=== PATIENT | female | born 1990 | race Caucasian/White ===

== ENCOUNTER 2018-12-08 03:10 | Inpatient (IN) | payer MEDICAID ==
[2018-12-08] MEDS ORDERED: ONDANSETRON INJ 8 MG in DEXTROSE 5% 50 ML IV (04:00)
[2018-12-08 04:44] LABS: ADD MAN DIFF? NO
[2018-12-08 04:49] LABS: BASOPHIL # 0.1 10^3/ul (0.0-0.1); BASOPHILS % 0.4 % (0.0-2.0); EOSINOPHILS # 0.2 10^3/ul (0.0-0.5); EOSINOPHILS % 1.6 % (0.0-7.0); HEMATOCRIT 35.7 % (37.0-47.0); HEMOGLOBIN 11.4 g/dl (12.0-16.0); LYMPHOCYTES # 2.6 10^3/ul (0.8-2.9); LYMPHOCYTES % 20.1 % (15.0-51.0); MEAN CORPUSCULAR HEMOGLOBIN 26.2 pg (29.0-33.0); MEAN CORPUSCULAR HGB CONC 31.9 g/dl (32.0-37.0); MEAN CORPUSCULAR VOLUME 82.1 fl (82.0-101.0); MEAN PLATELET VOLUME 11.8 fl (7.4-10.4); MONOCYTE # 0.9 10^3/ul (0.3-0.9); MONOCYTES % 7.3 % (0.0-11.0); NEUTROPHILS % 69.8 % (39.0-77.0); PLATELET COUNT 270 10^3/UL (140-415); RED BLOOD COUNT 4.35 10^6/ul (4.20-5.40); RED CELL DISTRIBUTION WIDTH 13.9 % (11.5-14.5)
[2018-12-08 04:49] LABS: WHITE BLOOD COUNT 12.9 10^3/ul (4.8-10.8)
[2018-12-08 05:00] LABS: ADD UMIC YES; UR ASCORBIC ACID NEGATIVE (NEGATIVE); UR BACTERIA FEW /HPF (NONE SEEN); UR BILIRUBIN (Dip) NEGATIVE (NEGATIVE); UR BLOOD (Dip) 1+ mg/dL (NEGATIVE); UR CALCIUM OXALATE CRYSTAL MODERATE /HPF (NONE SEEN); UR CLARITY CLOUDY (CLEAR); UR COLOR YELLOW (YELLOW); UR GLUCOSE (Dip) NEGATIVE (NEGATIVE); UR KETONES (Dip) NEGATIVE (NEGATIVE); UR LEUKOCYTE ESTERASE (Dip) 2+ Leu/ul (NEGATIVE); UR MUCUS FEW /HPF (NONE SEEN); UR NITRITE (Dip) NEGATIVE (NEGATIVE); UR NONSQUAMOUS EPITHELIAL CELL 1 /HPF (NONE SEEN); UR RBC 6 /HPF (0-5); UR SPECIFIC GRAVITY (Dip) 1.021 (1.003-1.030); UR SQUAMOUS EPITHELIAL CELL MODERATE /HPF (FEW); UR TOTAL PROTEIN (Dip) NEGATIVE (NEGATIVE); UR UROBILINOGEN (Dip) NEGATIVE (NEGATIVE); UR WBC 26 /HPF (0-5)
[2018-12-08 05:05] LABS: ALANINE AMINOTRANSFERASE 23 IU/L (13-69); ALBUMIN 3.5 g/dl (3.3-4.9); ALBUMIN/GLOBULIN RATIO 0.97; ALKALINE PHOSPHATASE 150 IU/L (42-121); AMYLASE 102 U/L (11-123); ANION GAP 10 (5-13); ASPARTATE AMINO TRANSFERASE 22 IU/L (15-46); BILIRUBIN,INDIRECT 0.2 mg/dl (0-1.1); BILIRUBIN,TOTAL 0.2 mg/dl (0.2-1.3); BLOOD UREA NITROGEN 8 mg/dl (7-20); CALCIUM 9.3 mg/dl (8.4-10.2); CARBON DIOXIDE 23 mmol/L (21-31); CHLORIDE 104 mmol/L (97-110); CREATININE 0.52 mg/dl (0.44-1.00); Estimated GFR > 60 mL/min (>60); GLUCOSE 149 mg/dl (70-220); LIPASE 148 U/L (23-300); POTASSIUM 3.5 mmol/L (3.5-5.1); SODIUM 137 mmol/L (135-144); TOTAL PROTEIN 7.1 g/dl (6.1-8.1)
[2018-12-08 05:11] LABS: AMPHETAMINE/METHAMPHETAMINE Negative (NEGATIVE); BARBITURATES Negative (NEGATIVE); BENZODIAZEPINES Negative (NEGATIVE); CANNABINOIDS Negative (NEGATIVE); COCAINE Negative (NEGATIVE); OPIATES Negative (NEGATIVE)
[2018-12-08] MEDS: AL HYDROX/MG HYDROX/SIMETH 30 ML CUP PO ×2 (05:50→08:33)
[2018-12-08] MEDS: DEXTROSE 5%-LR 1,000 ML IV (05:50)
[2018-12-08] MEDS: SOD CHLORIDE 0.9% 1,000 ML IV ×2 (06:14→17:09)
[2018-12-08] MEDS: CEFTRIAXONE 1 GM/50 ML (PMX) 50 ML IVPB (06:19)
[2018-12-08] MEDS: FAMOTIDINE 20 MG INJ IV ×3 (08:35→21:06)
[2018-12-08] MEDS: FERROUS SULFATE (EC) 325 MG TAB PO (09:00)
[2018-12-08] MEDS: PRENATAL VITAMIN PO (09:00)
[2018-12-08] MEDS ORDERED: OXYCODONE/ACETAMINOPHEN (5/325) TAB PO (15:00)
[2018-12-08] MEDS: ACETAMINOPHEN 325 MG TAB PO (16:08)
[2018-12-09] MEDS: SOD CHLORIDE 0.9% 1,000 ML IV ×3 (01:41→18:09)
[2018-12-09] MEDS: CEFTRIAXONE 1 GM/50 ML (PMX) 50 ML IVPB (06:38)
[2018-12-09] MEDS: PRENATAL VITAMIN PO (09:00)
[2018-12-09] MEDS: FERROUS SULFATE (EC) 325 MG TAB PO (09:14)
[2018-12-09] MEDS: FAMOTIDINE 20 MG INJ IV (09:14)
[2018-12-09] MEDS: MICONAZOLE 2% 45 GM VAG CR VAG (21:14)
[2018-12-09] MEDS: FAMOTIDINE 20 MG TAB PO (21:29)
== END 2018-12-10 02:10 | disposition home or self-care (01) | DRG 833 ==
LOC: OBT 03:10 → L-D 03:10 → OBT 08:17 → L-D 08:19
DX: O98.813 Other maternal infectious and parasitic diseases complicating pregnancy, third trimester (principal); B37.3 Candidiasis of vulva and vagina; O99.613 Diseases of the digestive system complicating pregnancy, third trimester; K21.9 Gastro-esophageal reflux disease without esophagitis; Z3A.30 30 weeks gestation of pregnancy
CPT/HCPCS: 76705; 76815; 76818; 80053; 80307; 81001; 82150; 83690; 85025; 87086

== ENCOUNTER 2019-01-25 20:41 | Outpatient (CLI) | payer MEDICAID ==
[2019-01-26 00:20] LABS: ADD UMIC YES; UR ASCORBIC ACID NEGATIVE (NEGATIVE); UR BACTERIA FEW /HPF (NONE SEEN); UR BILIRUBIN (Dip) NEGATIVE (NEGATIVE); UR BLOOD (Dip) NEGATIVE (NEGATIVE); UR CLARITY SLIGHTLY CLOUDY (CLEAR); UR COLOR YELLOW (YELLOW); UR GLUCOSE (Dip) NEGATIVE (NEGATIVE); UR KETONES (Dip) NEGATIVE (NEGATIVE); UR LEUKOCYTE ESTERASE (Dip) 2+ Leu/ul (NEGATIVE); UR NITRITE (Dip) NEGATIVE (NEGATIVE); UR RBC 6 /HPF (0-5); UR SPECIFIC GRAVITY (Dip) 1.013 (1.003-1.030); UR SQUAMOUS EPITHELIAL CELL FEW /HPF (FEW); UR TOTAL PROTEIN (Dip) NEGATIVE (NEGATIVE); UR UROBILINOGEN (Dip) NEGATIVE (NEGATIVE); UR WBC 4 /HPF (0-5)
== END 2019-01-26 03:00 | disposition home or self-care (01) ==
LOC: OBT 20:41 → L-D 20:42
DX: O36.8130 Decreased fetal movements, third trimester, not applicable or unspecified (principal); O23.43 Unspecified infection of urinary tract in pregnancy, third trimester; Z3A.37 37 weeks gestation of pregnancy
CPT/HCPCS: 76818; 81001

== ENCOUNTER 2019-02-06 09:15 | Inpatient (IN) | payer MEDICAID ==
[2019-02-06] MEDS ORDERED: MISOPROSTOL 200 MCG TAB PR ×2 (10:30→17:30)
[2019-02-06] MEDS ORDERED: OXYTOCIN 30 UNITS/LR 500 ML IV ×2 (10:30→17:30)
[2019-02-06] MEDS: AMPICILLIN 2 GM/NS (PMX) 100 ML IV (10:30)
[2019-02-06] MEDS ORDERED: CARBOPROST 250 MCG INJ IM ×2 (10:30→17:30)
[2019-02-06] MEDS ORDERED: LIDOCAINE 1% (MPF) 30 ML INJ INJ (10:30)
[2019-02-06] MEDS: LACTATED RINGER'S 1,000 ML IV ×3 (10:38→14:33)
[2019-02-06] MEDS: BUTORPHANOL 2 MG INJ IV (11:46)
[2019-02-06] MEDS ORDERED: AMPICILLIN 1 GM/NS (PMX) 50 ML IV (14:00)
[2019-02-06] MEDS ORDERED: FENTAnyl 2MCG/ML-ROPIV 0.2% 100 ML (14:08)
[2019-02-06] MEDS ORDERED: FENTAnyl 2MCG/ML-ROPIV 0.2% 100 ML BAG EPI (15:30)
[2019-02-06] MEDS ORDERED: NALOXONE (0.4 MG/ML) INJ IV (15:30)
[2019-02-06] MEDS: MINERAL OIL LIGHT 10 ML VIAL TOP (16:50)
[2019-02-06] MEDS: METHYLERGONOVINE 0.2 MG INJ IM (17:16)
[2019-02-06] MEDS: OXYTOCIN 30 UNITS/LR 500 ML IV ×3 (17:18→17:43)
[2019-02-06] MEDS ORDERED: NACL 0.9% 3 ML SYG IV (17:30)
[2019-02-06] MEDS ORDERED: METHYLERGONOVINE 0.2 MG INJ IM (17:30)
[2019-02-06] MEDS ORDERED: ONDANSETRON 4 MG INJ IV (17:30)
[2019-02-06] MEDS: IBUPROFEN 600 MG TAB PO (18:45)
[2019-02-07] MEDS: IBUPROFEN 600 MG TAB PO ×4 (00:30→17:08)
[2019-02-07] MEDS: OXYCODONE/ASPIRIN (4.88/325) TAB PO (09:12)
[2019-02-07] MEDS: LANOLIN HPA 1 PKT TOP (20:48)
[2019-02-08] MEDS: IBUPROFEN 600 MG TAB PO ×3 (01:29→11:43)
[2019-02-08] MEDS: WITCH HAZEL/GLYCERIN PAD PR (11:43)
[2019-02-08] MEDS: LANOLIN HPA 1 PKT TOP (11:43)
== END 2019-02-08 13:05 | disposition home or self-care (01) | DRG 807 ==
LOC: OBT 09:15 → L-D 09:20 → OBT 09:32 → L-D 09:32 → PP1 18:12
PROC: 10E0XZZ Delivery of Products of Conception, External Approach (ICD-10-PCS; principal; 2019-02-06)
PROC: 0HQ9XZZ Repair Perineum Skin, External Approach (ICD-10-PCS; 2019-02-06)
DX: O70.0 First degree perineal laceration during delivery (principal); Z37.0 Single live birth; O36.63X0 Maternal care for excessive fetal growth, third trimester, not applicable or unspecified; O99.214 Obesity complicating childbirth; Z3A.39 39 weeks gestation of pregnancy
CPT/HCPCS: 62322; 76815; 85025; 85610; 85730; 86592; 86850; 86900; 86901; 99464